=== PATIENT | female | born 1945 | race Caucasian/White ===

== ENCOUNTER 2020-11-10 18:05 | Emergency (ER) | payer OTHER ==
[~2020-11-10] VITALS: Ht 152.4 cm; Wt 60.3 kg
--- NOTE | ~2020-11-10 | EMS ---
[address] [address] EMS Patient Care Report Name: AURA FRANCIS [id number] Admission: 11/10/20 Attend Phys: Discharge: Date of : 49 Report #: [id number] THIS REPORT FOR: //name// Report Transmitted: 11/10/2020 18:19 EMS Care Summary [facility] [place] Incident [id number] @ 11/10/2020 17:06 Incident Location [address] [place] [address] Patient Aura Francis Female, 75 Years 1945 Patient Address [address] [place] [address] Patient History Parkinson's Disease,Other chronic pain,Chronic Obstructive Pulmonary Disease (COPD),Hyperlipidemia,Osteoporosis,Chronic Kidney Disease,Anemia, unspecified, Patient Allergies , Patient Medications Forteo, Furosemide, Gabapentin, Acetaminophen / Hydrocodone, Ibuprofen, Omeprazole, Docusate / sennosides, SENIOR CARE, Simvastatin, Topiramate, Trazodone, Venlafaxine, Vitamin B 12, Chief Complaint Dizziness Disposition Transported No Lights/[place] Dispatch Reason Stroke/CVA Transported To [facility] Narrative [facility] unit 311 along with [employer] ([employer] [address] [address] EMS Patient Care Report Name: AURA FRANCIS Room: [facility]#: [id number] Admission: 11/10/20 Attend Phys: Discharge: Date of : 49 Report #: [id number] Rescue 1 dispatched to above location in reference to a stroke. Upon arrival, [facility] personnel are at patients side. Patient is a 75 y/o female. Patient airway is patent. Breathing is of adequate depth, quality and rate. Circulation is self maintained. Patients skin is of normcal color, condition and temperature. Patient is alert and oriented to person, place, time and event with a GCS of 15. Patient is sitting on floor. Patient states that she has Parkinsons Disease and has been "bouncing off the montalvo" for the past four days. Patient states she has history of ear problems with dizziness and that it has increased over the past four days. Patient was found by family member lying on floor. Patient states that she has been there for a few hourse. Patient has some mild drooping to the left side of her face, family can not tell EMS crew if that is normal or not. Patients smile is symmetric. Director Of Strategy & Mobile are equal and no slurred speech is noted. Patient denies any loss of conciousness, but that she did "assist herself to the floor", and when she attempts to stand she gets "really dizzy". Patient usually ambulates around home with assistance of a walker, but unable to maintain a standing position currently. Patient denies any medication changes. Patient denies any blood thinning medications. Patient denies any incontinence. Patient denies any recent illness. Patient states that she has called her nurse and the doctor has advised her to go to [facility] because that is where the doctor goes. [facility] obtained a baseline set of vital signs prior to EMS arrival, all within normal limits. Patient states that she knows that she can't get up by herself at this point. Patient denies any injury and no gross injuries are noted. Patient is assisted x 2 people from a sitting position on the floor to a standing position. Patient appears to "pass out" briefly upon standing and loses control of her legs. Patient is maintained in an upright position x 2 people and is sat down on stairchair. Patient quickly "comes to" and advises that she didn't pass out, that she just got dizzy. Patient is secured to stairchair and is moved out of residence due to space constraints. Patient is then transferred x 2 people from stairchair to EMS stretcher without incident. Patinent is secured in a semi fowlers position via rails x 2 straps x 5. Patient on EMS stretcher is moved to ambulance, loaded and secured without incident. Patients vital signs are as noted. 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 12 lead is captured also showing a sinus rhythm with right bundle branch block noted. Due to patient "passing out" when standing, orthostatic vital signs are not attempted. Neuro / Mend exam is completed as noted. Vascular access is obtained via IV placement in left AC on first attempt with 20g using aseptic technique. BGL sample is obtained and read as noted. IV site is flushed with 10ml of normal saline with no signs of infiltration. Site secured with veinguard. Enroute to [facility], patients vital signs are repeated as noted. [facility] ED is contacted via radio with report, no orders given. Patient has no changes during transport. Upon arrival at [facility] ED, patient is moved to ED room 17. Patient is sheet transferred x 2 people from EMS stretcher to ED bed without incident. Patient is secured in bed via rails x 2. Patient care is transferred to staff with verbal report to nurse and nurses signature. End of report. Kai Valencia NRP. [facility] [address] [place] [address] EMS Patient Care Report Name: AURA FRANCIS Room: [facility]#: [id number] Admission: 11/10/20 Attend Phys: Discharge: Date of : 49 Report #: [id number] Initial Vitals @17:33SpO2: 97, @17:34SpO2: 98, @17:35SpO2: 97, @17:49SpO2: 90, @17:53SpO2: 96, @17:58SpO2: 97, @17:31 @17:31 @17:34P: 76,R: 16,BP: 129/62, @17:49P: 71,R: 16,BP: 126/61, @17:58P: 76,R: 16,BP: 136/59, @17:34GCS: 15, @17:49GCS: 15, @17:58GCS: 15, @17:19 @17:21 @17:40Glucose: 98, Assessments @17:19MENTAL:SKIN:HEENT:LUNG SOUNDS:ABDOMEN:PELVIS//GI:EXTREMITIES:PULSE:NEURO: Impression Dizziness Procedures @17:40 cc () Site: Antecubital-LeftResponse: UnchangedSucceeded@17:3112-Lead ECGResponse: UnchangedSucceeded@17:313-Lead ECGResponse: UnchangedSucceeded Timeline 00:00,Call Received 17:06,Dispatch Notified 17:06,Psap Call 17:06,Dispatched 17:07,En Route 17:16,On Scene 17:19,At Patient 17:19,BP: / M,PULSE: ,RR: R,SPO2: Ox,ETCO2: ,BG: ,PAIN: ,GCS: , 17:21,BP: / M,PULSE: ,RR: R,SPO2: Ox,ETCO2: ,BG: ,PAIN: ,GCS: , 17:31,12-Lead ECG,Response: UnchangedSucceeded, 17:31,BP: / M,PULSE: ,RR: R,SPO2: Ox,ETCO2: ,BG: ,PAIN: ,GCS: , 17:31,3-Lead ECG,Response: UnchangedSucceeded, 17:31,BP: / M,PULSE: ,RR: R,SPO2: Ox,ETCO2: ,BG: ,PAIN: ,GCS: , 17:33,BP: / M,PULSE: ,RR: R,SPO2: 97 Ox,ETCO2: ,BG: ,PAIN: ,GCS: , [place] [address] EMS Patient Care Report Name: AURA FRANCIS Room: [facility]#: [id number] Admission: 11/10/20 Attend Phys: Discharge: Date of : 49 Report #: [id number] 17:34,BP: / M,PULSE: ,RR: R,SPO2: 98 Ox,ETCO2: ,BG: ,PAIN: ,GCS: , 17:34,BP: 129/62 M,PULSE: 76,RR: 16 R,SPO2: Ox,ETCO2: ,BG: ,PAIN: ,GCS: , 17:34,BP: / M,PULSE: ,RR: R,SPO2: Ox,ETCO2: ,BG: ,PAIN: ,GCS: 15, 17:35,BP: / M,PULSE: ,RR: R,SPO2: 97 Ox,ETCO2: ,BG: ,PAIN: ,GCS: , 17:36,Depart Scene 17:40, cc Site: Antecubital-Left,Response: UnchangedSucceeded, 17:40,BP: / M,PULSE: ,RR: R,SPO2: Ox,ETCO2: ,B,PAIN: ,GCS: , 17:49,BP: / M,PULSE: ,RR: R,SPO2: 90 Ox,ETCO2: ,BG: ,PAIN: ,GCS: , 17:49,BP: 126/61 M,PULSE: 71,RR: 16 R,SPO2: Ox,ETCO2: ,BG: ,PAIN: ,GCS: , 17:49,BP: / M,PULSE: ,RR: R,SPO2: Ox,ETCO2: ,BG: ,PAIN: ,GCS: 15, 17:53,BP: / M,PULSE: ,RR: R,SPO2: 96 Ox,ETCO2: ,BG: ,PAIN: ,GCS: , 17:58,BP: / M,PULSE: ,RR: R,SPO2: 97 Ox,ETCO2: ,BG: ,PAIN: ,GCS: , 17:58,BP: 136/59 M,PULSE: 76,RR: 16 R,SPO2: Ox,ETCO2: ,BG: ,PAIN: ,GCS: , 17:58,BP: / M,PULSE: ,RR: R,SPO2: Ox,ETCO2: ,BG: ,PAIN: ,GCS: 15, 18:01,At Destination 18:27,Call Closed Disclaimer v1.1 Copyright 2020 [employer] This EMS Care Summary contains data elements from the applicable legal record (which may be displayed differently). It is designed to provide pertinent information for the following purposes: continuity of care, clinical quality, and state data reporting. The complete legal record is available to ED staff and administrators of the receiving hospital in [employer]'s Patient Tracker. All data is provided "as is."
[2020-11-10] MEDS ORDERED: FUROSEMIDE 20 M20 MG PO (18:13)
[2020-11-10] MEDS ORDERED: FORTEO750 MCG/3 SUBQ (18:13)
[2020-11-10] MEDS ORDERED: NEURONTIN 400M400 M2 PO (18:14)
[2020-11-10] MEDS ORDERED: NORCO7.5 PO (18:14)
[2020-11-10] MEDS ORDERED: OMEPRAZOLE 20 M20 M1 PO (18:15)
[2020-11-10] MEDS ORDERED: IBUPROFEN 200200 M1 PO (18:15)
[2020-11-10] MEDS ORDERED: ZOCOR 20 MG TAB20 M1 PO (18:15)
[2020-11-10] MEDS ORDERED: SENNOSIDES-DOC1 EACH PO (18:15)
[2020-11-10] MEDS ORDERED: DESYREL150 MG PO (18:16)
[2020-11-10] MEDS ORDERED: TOPIRAMATE ER100 MG PO (18:16)
[2020-11-10] MEDS ORDERED: VENLAFAXINE H37.5 M2 PO (18:16)
[2020-11-10] MEDS ORDERED: VITAMIN B122500 MCG PO (18:16)
[2020-11-10 18:47] LABS: ABSOLUTE EOSINOPHILS 0.2 thou/uL (0.0-0.7); ABSOLUTE MONOCYTES 0.5 thou/uL (0.0-1.2); ABSOLUTE NEUTROPHILS 4.9 thou/uL (1.6-8.1); BASOPHILS 0.5 %; EOSINOPHILS 2.4 %; HEMOGLOBIN 13.1 gm/dL (12.0-15.0); LYMPHOCYTES 25.7 %; MCH 30.7 pg (26.0-34.0); MCHC 34.4 g/dL (28.0-37.0); MCV 89.1 fL (80.0-100.0); MONOCYTES 7.1 %; MPV 7.5 fl. (7.2-11.1); NUCLEATED RBCS 0 /100WBC; PLATELET COUNT* 177 thou/uL (150-400); POLYS 64.3 %; RBC 4.26 mil/uL (4.20-5.00); RDW-CV 13.7 % (10.5-14.5); WBC 7.7 thou/uL (4.0-11.0)
[2020-11-10 18:57] LABS: ANION GAP 5 mmol/L (7-16); BUN 21 mg/dL (7-18); CALCIUM 9.4 mg/dL (8.5-10.1); CHLORIDE 108 mmol/L (98-107); CO2 29 mmol/L (21-32); CREATININE 1.1 mg/dL (0.6-1.3); GLUCOSE 110 mg/dL (70-99); POTASSIUM 3.2 mmol/L (3.5-5.1); SODIUM 142 mmol/L (136-145)
[2020-11-10 19:02] LABS: ALBUMIN 3.5 g/dL (3.4-5.0); ALKALINE PHOSPHATASE 101 U/L (46-116); SGOT 7 U/L (15-37); SGPT < 6 U/L (30-65); TOTAL BILIRUBIN 0.3 mg/dL (<0.1-1.0); TOTAL PROTEIN 6.6 g/dL (6.4-8.2)
[2020-11-10 19:19] LABS: URINE BILIRUBIN NEGATIVE (Negative); URINE BLOOD NEGATIVE (Negative); URINE COLOR YELLOW; URINE GLUCOSE-RANDOM NEGATIVE (Negative); URINE KETONES NEGATIVE (Negative); URINE LEUKOCYTES 2+ (Negative); URINE NITRITE NEGATIVE (Negative); URINE PROTEIN NEGATIVE (Negative)
[2020-11-10 19:21] LABS: URINE CLARITY HAZY
[2020-11-10 19:27] LABS: SQUAMOUS >10 Many /LPF (0-3)
[2020-11-10 19:28] LABS: BACTERIA >30 Many /HPF (None Seen); CASTS None Seen /LPF (None Seen); CRYSTALS None Seen /LPF (None Seen); URINE RBC None Seen /HPF (0-2); URINE WBC 0-5 Rare /HPF (0-5)
[2020-11-10] MEDS ORDERED: KLOR-CON 10 ER10 MEQ PO (20:37)
[2020-11-10 21:00] VITALS: BP 124/70
--- NOTE | 2020-11-11 14:01 | EKG ---
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 : 1945 Requested By: Brooks Osorio Order Number: [id number] MD: Ambrose Ozuna Measurements Intervals [place] Rate: 65 P: 50 CT: 174 QRS: 21 QRSD: 100 T: 15 QT: 402 QTc: 418 Interpretive Statements Sinus rhythm RSR' in V1 or V2, right VCD Nondiagnostic inferior Q waves No previous ECG available for comparison Electronically Signed On 11-11-2020 14:01:06 CDT by Ambrose Ozuna [email or web address] <ELECTRONICALLY SIGNED> By: Ambrose Ozuna MD, [facility] 11/11/20 1401 1847 1847 Ambrose Ozuna MD, [facility] /EPI
--- NOTE | 2020-11-11 14:01 | EKG ---
[place] [address] ELECTROCARDIOGRAM REPORT Name: SHERIDAN FRANCIS Room: 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 : 1945 Requested By: Dacia Araya Order Number: [id number] MD: Ambrose Ozuna Measurements Intervals [place] Rate: 81 P: 24 [place]: 178 QRS: 35 QRSD: 96 T: 29 QT: 393 QTc: 457 Interpretive Statements Sinus rhythm Low voltage, precordial leads Compared to ECG 11/10/2020 18:47:43 Low QRS voltage now present Right ventricular hypertrophy no longer present Myocardial infarct finding no longer present Electronically Signed On 11-11-2020 14:01:18 CDT by Ambrose Ozuna [email or web address] <ELECTRONICALLY SIGNED> By: Ambrose Ozuna MD, [facility] 11/11/20 1401 1853 1853 Ambrose Ozuna MD, [facility] /EPI
== END 2020-11-10 21:01 | disposition home or self-care (01) ==
LOC: M.ERS 18:05
PROVIDERS: Emergency Medicine
DX: E87.6 Hypokalemia (principal); R53.1 Weakness; R42 Dizziness and giddiness; J44.9 Chronic obstructive pulmonary disease, unspecified; Z88.8 Allergy status to other drugs, medicaments and biological substances; W18.39XA Other fall on same level, initial encounter; Y93.89 Activity, other specified; Y92.89 Other specified places as the place of occurrence of the external cause; Y99.8 Other external cause status

== ENCOUNTER 2021-05-31 11:23 | Emergency (ER) | payer OTHER ==
[~2021-05-31] VITALS: Ht 152.4 cm; Wt 61.2 kg
[~2021-05-31 11:23] MED LIST: DESYREL150 MG PO; FORTEO750 MCG/3 SUBQ; FUROSEMIDE 20 M20 MG PO; IBUPROFEN 200200 M1 PO; KLOR-CON 10 ER10 MEQ PO; NEURONTIN 400M400 M2 PO; NORCO7.5 PO; OMEPRAZOLE 20 M20 M1 PO; SENNOSIDES-DOC1 EACH PO; TOPIRAMATE ER100 MG PO; VENLAFAXINE H37.5 M2 PO; VITAMIN B122500 MCG PO; ZOCOR 20 MG TAB20 M1 PO
[2021-05-31 12:50] LABS: INFLUENZA A ANTIGEN Negative (Negative); INFLUENZA B ANTIGEN Negative (Negative)
[2021-05-31 14:22] LABS: HEMATOCRIT 38.9 % (37.0-47.0); HEMOGLOBIN 13.1 gm/dL (12.0-15.0); MCH 30.5 pg (26.0-34.0); MCHC 33.7 g/dL (28.0-37.0); MCV 90.5 fL (80.0-100.0); MPV 7.7 fl. (7.2-11.1); RBC 4.3 mil/uL (4.20-5.00); RDW-CV 13.3 % (10.5-14.5); WBC 10.2 thou/uL (4.0-11.0)
[2021-05-31 14:40] LABS: CALCIUM 8.6 mg/dL (8.5-10.1); POTASSIUM 3.7 mmol/L (3.5-5.1)
[2021-05-31] MEDS ORDERED: MEDROLDOSEPACK PO (15:31)
[2021-05-31] MEDS ORDERED: AUGMENTIN 875-1 EACH PO (15:31)
[2021-05-31] MEDS ORDERED: ZPAK PO (15:31)
[2021-05-31 15:39] VITALS: BP 102/43
--- NOTE | 2021-06-01 12:28 | EKG ---
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 : 1945 Requested By: Massimo Sanon Order Number: [id number] MD: Ambrose Ozuna Measurements Intervals [place] Rate: 79 P: 71 [place]: 162 QRS: 55 QRSD: 159 T: 47 QT: 383 QTc: 440 Interpretive Statements Sinus rhythm Left atrial enlargement Nonspecific intraventricular conduction delay of the right type Borderline repolarization abnormality Compared to ECG 11/10/2020 18:53:06 Atrial abnormality now present Intraventricular conduction delay now present Electronically Signed On 06-01-2021 12:28:01 FIRE CONTROL ASSISTANT by Ambrose Ozuna [email or web address] <ELECTRONICALLY SIGNED> By: Ambrose Ozuna MD, FAC 06/01/21 1228 1202 1202 Ambrose Ozuna MD, [facility] /EPI
== END 2021-05-31 15:39 | disposition home or self-care (01) ==
LOC: M.ERS 11:23
PROVIDERS: Physician Assistant
DX: J18.9 Pneumonia, unspecified organism (principal); Z20.822 Contact with and (suspected) exposure to COVID-19; J44.9 Chronic obstructive pulmonary disease, unspecified; F17.210 Nicotine dependence, cigarettes, uncomplicated; Z79.899 Other long term (current) drug therapy; Z88.8 Allergy status to other drugs, medicaments and biological substances